=== PATIENT | female | born 1985 | race Caucasian/White ===

== ENCOUNTER 2019-11-12 07:53 | Inpatient (IN) ==
[2019-11-12] MEDS ORDERED: Famotidine 20 MG/2 ML VIAL IVP PRN (08:44)
[2019-11-12] MEDS ORDERED: Metoclopramide 10 MG/2 ML VIAL IVP PRN (08:44)
[2019-11-12] MEDS ORDERED: Naloxone 0.4 MG/ML INJ IVP PRN (08:44)
[2019-11-12] MEDS ORDERED: Ringers Solution, Lactated 1,000 ML ONE ×2 (08:44→20:02)
[2019-11-12] MEDS ORDERED: Ringers Solution, Lactated 1,000 ML IVC SCH ×2 (08:45→19:30)
[2019-11-12] MEDS ORDERED: Oxytocin 20 units/ LR 1000 mL 20 UNIT/1,000 ML BAG IVC ONE (09:03)
[2019-11-12 09:12] LABS: Amphetamine Screen,Urine Negative ng/mL (Cutoff=1000); Barbiturate Screen,Urine Negative ng/mL (Cutoff=200); Benzodiazepines Screen,Urine Negative ng/mL (Cutoff=200); Cannabinoid Screen,Urine Negative ng/mL (Cutoff = 50); Cocaine Screen,Urine Negative ng/mL (Cutoff= 300); Creatinine,Urine 93 mg/dL; Opiate Screen,Urine Negative ng/mL (Cutoff=300); Phencyclidine Screen,Urine Negative ng/mL (Cutoff=25); Protein/Creatinine Ratio,Urine 0.25 mg/mg (0.00-0.20)
[2019-11-12 09:18] LABS: Basophils % 0.4 %; Eosinophils % 0.3 %; Hematocrit 42.9 % (35.3-44.9); Hemoglobin 14.2 g/dL (11.5-15.4); Immature Granulocytes % 1.4 % (0-4); Mean Corpuscular HGB Conc 33.1 g/dL (31.6-35.5); Mean Corpuscular Hemoglobin 30.3 pg (28.0-33.3); Mean Corpuscular Volume 91.7 fL (83.0-100.0); Mean Platelet Volume 11.4 fL (9.4-12.4); Monocytes # 1.1 K/mcL (0.0-1.3); Monocytes % 10.7 %; Neutrophils # 7.1 K/mcL (1.6-8.9); Platelet Count 246 K/mcL (140-400); Red Blood Count 4.68 M/mcL (3.82-4.97); Red Cell Distribution Width 13.2 % (11.5-14.5); Segmented Neutrophils % 68.2 %; White Blood Count 10.3 K/mcL (4.3-11.1)
[2019-11-12 09:22] LABS: Alanine Aminotransferase 12 Units/L (7-52); Aspartate Amino Transferase 14 Units/L (13-39); BUN/Creatinine Ratio 14 (6-26); Blood Urea Nitrogen 7 mg/dL (6-20); Lactate Dehydrogenase 130 Units/L (140-271); Uric Acid 3.6 mg/dL (2.3-7.6); eGFR For African Americans > 60 (> 60); eGFR For Non-African Americans > 60 (> 60)
[2019-11-12] MEDS ORDERED: EPHEDrine 50 MG/ML VIAL IVP PRN (09:43)
[2019-11-12] MEDS ORDERED: Epidural Premix (fent/bupiv) 110 ML EP SCH (09:45)
[2019-11-12] MEDS ORDERED: Terbutaline 1 MG/ML VIAL SQ ONE (13:35)
[2019-11-12] MEDS ORDERED: Chloroprocaine/PF 20 ML VIAL INFILT ONE ×2 (19:07→19:43)
[2019-11-12] MEDS ORDERED: *HR* FentaNYL (PF) 100 MCG/2 ML VIAL ONE ×2 (19:07→19:52)
[2019-11-12] MEDS ORDERED: *HR* Morphine Sulfate/PF 10 MG/10 ML AMPUL ONE (19:07)
[2019-11-12] MEDS ORDERED: Lidocaine/EPI 1:200k 2% PF 20 ML VIAL ONE (19:07)
[2019-11-12] MEDS ORDERED: Ondansetron 4 MG/2 ML VIAL ONE (19:07)
[2019-11-12] MEDS ORDERED: Acetaminophen IV 1,000 MG/100 ML INFUS..BTL ONE (19:16)
[2019-11-12] MEDS ORDERED: Ondansetron 4 MG/2 ML VIAL IVP ONE (19:25)
[2019-11-12] MEDS ORDERED: *HR* Promethazine 25 MG/ML VIAL IVP PRN (19:25)
[2019-11-12] MEDS ORDERED: *HR* Labetalol 20 MG/4 ML SYRINGE IVP PRN (19:25)
[2019-11-12] MEDS ORDERED: *HR* OxyCODONE Immed Rel 5 MG TABLET PO PRN (19:25)
[2019-11-12] MEDS ORDERED: *HR* Phenylephrine 10 MG/ML VIAL ONE (19:31)
[2019-11-12] MEDS ORDERED: Lidocaine -MPF 2% 5 ML VIAL ONE ×2 (19:53)
[2019-11-12] MEDS: *HR* HYDROmorphone PF 0.5 MG/0.5 ML SYRINGE IVP PRN ×2 (21:28→22:36)
[2019-11-12] MEDS ORDERED: Sennosides 8.6 MG TABLET PO PRN (22:42)
[2019-11-12] MEDS ORDERED: Simethicone 80 MG TAB.CHEW PO PRN (22:42)
[2019-11-12] MEDS ORDERED: Oxytocin 20 units/ LR 1000 mL 20 UNIT/1,000 ML BAG IVC SCH (22:42)
[2019-11-12] MEDS ORDERED: Ondansetron 4 MG/2 ML VIAL IVP PRN (22:42)
[2019-11-12] MEDS: Ibuprofen 600 MG TABLET PO PRN (23:38)
[2019-11-13] MEDS: *HR* OxyCODONE/APAP 5/325 TABLET PO PRN ×5 (01:04→22:29)
[2019-11-13] MEDS: metroNIDAZOLE 500 MG TABLET PO SCH ×4 (01:04→19:29)
[2019-11-13] MEDS: CeFAZolin 2 GM/120 ML BAG IVPB SCH ×3 (04:10→19:30)
[2019-11-13 05:57] LABS: Basophils % 0.2 %; Eosinophils % 0.1 %; Hematocrit 36.1 % (35.3-44.9); Immature Granulocytes % 0.6 % (0-4); Lymphocytes % 5.4 %; Mean Corpuscular HGB Conc 33.2 g/dL (31.6-35.5); Mean Corpuscular Hemoglobin 30.2 pg (28.0-33.3); Mean Corpuscular Volume 90.9 fL (83.0-100.0); Mean Platelet Volume 11.2 fL (9.4-12.4); Monocytes % 5.2 %; Neutrophils # 16.1 K/mcL (1.6-8.9); Platelet Count 177 K/mcL (140-400); Red Blood Count 3.97 M/mcL (3.82-4.97); Red Cell Distribution Width 13.2 % (11.5-14.5); Segmented Neutrophils % 88.5 %
[2019-11-13 05:59] LABS: White Blood Count 18.2 K/mcL (4.3-11.1)
[2019-11-13] MEDS: Ibuprofen 600 MG TABLET PO PRN ×3 (07:03→19:29)
[2019-11-13] MEDS: Prenatal Vit/FA 1 EACH TABLET PO SCH (08:55)
[2019-11-14] MEDS: Ibuprofen 600 MG TABLET PO PRN ×2 (01:54→08:45)
[2019-11-14] MEDS: *HR* OxyCODONE/APAP 5/325 TABLET PO PRN ×2 (03:19→10:36)
[2019-11-14 07:46] VITALS: BP 114/72
[2019-11-14] MEDS: Prenatal Vit/FA 1 EACH TABLET PO SCH (08:44)
[2019-11-14] MEDS: metroNIDAZOLE 500 MG TABLET PO SCH (08:44)
== END 2019-11-14 13:40 | disposition home or self-care (01) | DRG 788 ==
LOC: 1NENULAB 07:53 → 1NENUOBS 22:43
PROVIDERS: ADMIT Obstetrics & Gynecology; ATTEND Obstetrics & Gynecology